=== PATIENT | female | born 1970 | race American Indian/Alaskan Native ===

== ENCOUNTER 2016-07-10 11:52 | Emergency (ER) | payer BC ==
[2016-07-10 11:56] VITALS: PULSE 75; TEMP 97.8
[2016-07-10 11:57] VITALS: BMI 32.5
[2016-07-10 12:47] LABS: BASO # 0.1 K/uL (0.0-0.2); BASO % 0.9 % (0.0-2.0); EOS # 0.1 K/uL (0.0-0.7); EOS % 1.6 % (0.0-4.0); HEMATOCRIT 35.1 % (34.0-47.0); LYMPH # 2.1 K/uL (1.0-4.3); LYMPH % 33.8 % (20.0-40.0); MEAN CELL VOLUME 83.7 fl (81.0-99.0); MEAN CORPUSCULAR HEMOGLOBIN 27.7 pg (27.0-31.0); MEAN CORPUSCULAR HGB CONC 33.1 g/dL (33.0-37.0); MEAN PLATELET VOLUME 7.9 fl (7.2-11.7); MONO # 0.5 K/uL (0.0-0.8); MONO % 8.1 % (0.0-10.0); NEUT # 3.5 K/uL (1.8-7.0); NEUT % 55.6 % (50.0-75.0); NRBC % 0.1 % (0.0-0.0); RED CELL DISTRIBUTION WIDTH 14.7 % (11.5-14.5); WHITE BLOOD COUNT 6.3 K/uL (4.8-10.8)
[2016-07-10 12:57] LABS: GLUCOSE,RANDOM 90 mg/dL (65-105); TOTAL PROTEIN 7.8 G/DL (6.3-8.2)
[2016-07-10 12:58] LABS: ALB/GLOB RATIO 0.8 (1.0-2.1); ALKALINE PHOSPHATASE 64 U/L (38-126); ALT/SGPT 31 U/L (9-52); AST/SGOT 43 U/L (14-36); BILIRUBIN,TOTAL 0.5 mg/dl (0.2-1.3); BLOOD UREA NITROGEN 11 mg/dl (7-17); CALCIUM 8.9 mg/dL (8.4-10.2); CARBON DIOXIDE 27 mmol/L (22-30); CHLORIDE 105 mmol/L (98-107); GFR AFRICAN-AMERICAN > 60; POTASSIUM 3.9 MMOL/L (3.6-5.0); SODIUM 140 mmol/l (132-148)
--- NOTE | 2016-07-10 14:29 | ED PDOC ---
HPI: Abdomen Time Seen by Provider: 07/10/16 12:00 Chief Complaint (Nursing): Abdominal Pain Chief Complaint (Provider): abdominal pain History Per: Patient (46 y/o female M4 here with vaginal bleeding/crampy abdominal pain this week. Was seen by outpatient broadloom weaver andie and has has us 06/30 with possible iup noted. ) Past Medical History Reviewed: Historical Data, Nursing Documentation, Vital Signs Vital Signs: Last Vital Signs Temp 97.8 F 07/10/16 14:57 Pulse 75 07/10/16 14:57 Resp 18 07/10/16 14:57 BP 149/85 07/10/16 14:57 Pulse Ox 99 07/10/16 14:57 - Medical History PMH: Bronchitis - Family History Family History: States: Unknown Family Hx - Immunization History Hx Tetanus Toxoid Vaccination: No Hx Influenza Vaccination: Yes Hx Pneumococcal Vaccination: No - Home Medications Home Medications: Ambulatory Orders Medication Instructions Recorded Albuterol HFA [Ventolin HFA 90 2 puff IH [id number] #0 puff 10/28/15 mcg/actuation (8 g)] Naproxen [Naprosyn Tab] 375 mg PO TID PRN #21 tab 07/10/16 - Allergies Allergies/Adverse Reactions: Allergies Allergy/AdvReac Type Severity Reaction Status Date / Time Penicillins Allergy Mild RASH Verified 07/10/16 11:58 shellfish derived Allergy RASH Verified 07/10/16 11:58 Review of Systems ROS Statement: Except As Marked, All Systems Reviewed And Found Negative Physical Exam - Reviewed Nursing Documentation Reviewed: Yes Vital Signs Reviewed: Yes - Physical Exam Appears: Positive for: Well, Non-toxic, No Acute Distress Head Exam: Positive for: ATRAUMATIC, NORMAL INSPECTION, NORMOCEPHALIC Skin: Positive for: Normal Color, Warm, DRY Eye Exam: Positive for: EOMI, Normal appearance, PERRL ENT: Positive for: Normal ENT Inspection Neck: Positive for: Normal, Painless ROM Cardiovascular/Chest: Positive for: Regular Rate, Rhythm Respiratory: Positive for: CNT, Normal Breath Sounds Gastrointestinal/Abdominal: Positive for: Normal Exam, Bowel Sounds, Soft Back: Positive for: Normal Inspection Extremity: Positive for: Normal ROM Neurologic/Psych: Positive for: Alert, Oriented - Laboratory Results Result Diagrams: 07/10/16 12:35 07/10/16 12:35 Urine POC: Negative - ECG O2 Sat by Pulse Oximetry: 98 - Progress ED Course And Treament: beta hcg noted <2.37 d/w patient US from 06/30/2016 notes no IUP; hemorrhaghic ovarian cyst noted. acetaminophen 650 mg x 1 dose for pain. Patient to f/u with Dr. Goss this Monday Disposition - Clinical Impression Clinical Impression: Vaginal bleeding - Patient ED Disposition Is Patient to be Admitted: No - Disposition Disposition: Routine/Home Disposition Time: 15:00 Condition: FAIR Prescriptions: Naproxen [Naprosyn Tab] 375 mg PO TID PRN #21 tab PRN Reason: Pain, Moderate (4-7) Instructions: Menstruation (ED)
[2016-07-10 14:58] VITALS: BP 149/85; RESP 18
[2016-07-10 17:21] VITALS: O2SAT 98
== END 2016-07-10 15:10 | disposition home or self-care (01) ==
LOC: H.ER 11:52
DX: N93.9 Abnormal uterine and vaginal bleeding, unspecified (principal); N83.291 Other ovarian cyst, right side